=== PATIENT | male | born 1985 | race American Indian/Alaskan Native ===

== ENCOUNTER 2017-07-03 01:28 | Emergency (ER) | payer BC ==
[2017-07-03 02:22] LABS: Basophils % (Auto) 0.5 % (0.0-1.8); Hematocrit 37.9 % (35.5-45.6); Hemoglobin 12.4 gm/dl (11.8-15.2); Mean Corpuscular HGB Conc 33 % (32-34); Mean Corpuscular Hemoglobin 26 pg (28-32); Mean Corpuscular Volume 80 fl (84-94); Platelet Count 279 K/mm3 (140-440); Red Blood Count 4.76 M/mm3 (3.65-5.03); Red Cell Distribution Width 14.1 % (13.2-15.2); White Blood Count 7.7 K/mm3 (4.5-11.0)
[2017-07-03 02:24] LABS: Anion Gap 17 mmol/L; BUN/Creatinine Ratio 11.11; Blood Urea Nitrogen 10 mg/dL (9-20); Calcium 8.9 mg/dL (8.4-10.2); Carbon Dioxide 24 mmol/L (22-30); Chloride 101.3 mmol/L (98-107); Glucose 99 mg/dL (75-100); Potassium 3.7 mmol/L (3.6-5.0); Sodium 139 mmol/L (137-145)
[2017-07-03] MEDS ORDERED: BABY ASPIRIN PO ONE (07:52)
--- NOTE | 2017-07-03 07:54 | Emergency Department Report ---
ED Chest Pain HPI - General Chief Complaint: Chest Pain Stated Complaint: CHEST PAIN Time Seen by Provider: 07/03/17 07:39 Source: patient Mode of arrival: Ambulatory Limitations: No Limitations - History of Present Illness Initial Comments: This is a 32-year-old -[place] male presents to the emergency department with a 2 to three-day history of right-sided chest pain. He has some occasional and/or intermittent shortness of breath but his chest pain worsens with respirations. He denies any fever, nausea, vomiting, back pain or diaphoresis. He did not take anything for symptoms prior to presentation. He is an occasional tobacco smoker but denies any illicit drug use. No recent travel or sick contacts at home. He does not have a primary care physician. He has a past mental history of asthma. Severity scale (0 -10): 5 - Related Data Home Medications Medication Instructions Recorded Confirmed Last Taken No Known Home Medications [No 07/03/17 07/03/17 Unknown Reported Home Medications] Allergies Allergy/AdvReac Type Severity Reaction Status Date / Time pork derived (porcine) AdvReac Diarrhea Verified 07/03/17 01:49 shellfish derived AdvReac Diarrhea Verified 07/03/17 01:49 Heart Score - HEART Score History: Slightly suspicious EKG: Normal Age: < 45 Risk factors: 1-2 risk factors Troponin: < normal limit HEART Score: 1 - Critical Actions Critical Actions: 0-3 pts:0.9-1.7%risk of adverse cardiac event.Candidate for discharge ED Review of Systems ROS: Stated complaint: CHEST PAIN Other details as noted in HPI Comment: All other systems reviewed and negative Constitutional: denies: chills, fever Eyes: denies: eye pain, eye discharge, vision change ENT: denies: ear pain, throat pain Respiratory: shortness of breath. denies: cough, wheezing Cardiovascular: chest pain. denies: palpitations Gastrointestinal: denies: abdominal pain, nausea, diarrhea Genitourinary: denies: urgency, dysuria Musculoskeletal: denies: back pain, joint swelling, arthralgia Skin: denies: rash, lesions Neurological: denies: headache, weakness, paresthesias ED Past Medical Hx - Past Medical History Previous Medical History?: Yes Hx Asthma: Yes - Surgical History Past Surgical History?: Yes Additional Surgical History: hydrocele - Social History Smoking Status: Current Some Day Smoker Substance Use Type: None - Medications Home Medications: Home Medications Medication Instructions Recorded Confirmed Last Taken Type No Known Home Medications [No 07/03/17 07/03/17 Unknown History Reported Home Medications] ED Physical Exam - General Limitations: No Limitations - Other Other exam information: GENERAL: The patient is well-developed well-nourished. HENT: Normocephalic. Atraumatic. Patient has moist mucous membranes. EYES: Extraocular motions are intact. Pupils equal reactive to light bilaterally. NECK: Supple. Trachea is midline. CHEST/LUNGS: Clear to auscultation. There is no respiratory distress noted. HEART/CARDIOVASCULAR: Regular. There is no tachycardia. There is no gallop rub or murmur. ABDOMEN: Abdomen is soft, nontender. Patient has normal bowel sounds. There is no abdominal distention. SKIN: Skin is warm and dry. NEURO: The patient is awake, alert, and oriented. The patient is cooperative. The patient has no focal neurologic deficits. The patient has normal speech. MUSCULOSKELETAL: There is no tenderness or deformity. There is no limitation range of motion. There is no evidence of acute injury. ED Course Vital Signs 07/03/17 07/03/17 07/03/17 01:44 06:50 07:49 Temperature 98.6 F 98.1 F 98.1 F Pulse Rate 74 66 89 Respiratory 18 18 21 Rate Blood Pressure 131/79 128/75 Blood Pressure 136/75 [Left] O2 Sat by Pulse 100 100 100 Oximetry 07/03/17 07/03/17 07:50 09:13 Temperature Pulse Rate 78 Respiratory 21 16 Rate Blood Pressure Blood Pressure 135/72 [Left] O2 Sat by Pulse 100 100 Oximetry ARON score - Aron Score Age > 65: (0) No Aspirin use within the Past 7 Days: (0) No 3 or more CAD Risk Factors: (0) No 2 or more Angina events in past 24 hrs: (0) No Known CAD with more than 50% Stenosis: (0) No Elevated Cardiac Markers: (0) No ST Deviation Greater than 0.5mm: (0) No ARON Score: 0 ED Medical Decision Making - Lab Data Result diagrams: 07/03/17 01:53 07/03/17 01:53 - EKG Data -: EKG Interpreted by Wy EKG shows normal: sinus rhythm, axis, intervals, QRS complexes, ST-T waves Rate: normal - EKG Data When compared to previous EKG there are: previous EKG unavailable Interpretation: normal EKG - Radiology Data Radiology results: image reviewed interpreted by me: Chest x-ray does not show any acute process. There are no pleural effusions, obvious pneumonia and there is no pneumothorax. - Medical Decision Making 32-year-old male presents with a few days of right-sided chest pain. EKG is normal without ST elevation AL, ischemia or dysrhythmia. Chest x-ray does not show any acute process. Labs are unremarkable including negative troponins 3 and a negative d-dimer. Patient is low and the heart score criteria and has a ARON score of 0. He appears safe for discharge home at this time. He was given referrals for primary care and cardiology. He will return to the ER with any worsening of symptoms or any acute distress. - Differential Diagnosis costochondritis, GERD, AL, PE, pneumonia Critical Care Time: No Critical care attestation.: If time is entered above; I have spent that time in minutes in the direct care of this critically ill patient, excluding procedure time. ED Disposition Clinical Impression: Right-sided chest pain Disposition: DC-01 TO HOME OR SELFCARE Is pt being admited?: No Condition: Stable Instructions: Chest Pain (ED) Additional Instructions: Please follow up with a primary care physician in the next few days. I have also given you a referral for a local field support representative, Dr. Kimbrough, in case she would like to follow up regarding your right-sided chest pain. Return to the emergency Department with any worsening of your symptoms or any acute distress. Referrals: PRIMARY MD VERONICA [Primary Care Provider] - 3-5 Days ISABELLA KIMBROUGH MD [Staff Physician] - 3-5 Days LUIZ HUI JR, MD [Staff Physician] - 3-5 Days [facility] [Outside] - 3-5 Days Forms: Work/School Release Form(ED) Time of Disposition: 09:06
[2017-07-03 09:14] VITALS: BP 135/72
--- NOTE | 2017-07-03 14:55 | XRay Report ---
FINAL REPORT PROCEDURE: XR CHEST ROUTINE 2V TECHNIQUE: Two views of the chest are obtained HISTORY: CP COMPARISON: No prior studies are available for comparison. FINDINGS: The heart is normal in size. There is no focal infiltrate, pneumothorax or pleural effusion. There is cortical irregularity suggested of the anterior aspect of the left 1st rib. This is probably a vascular channel but correlation with point tenderness is recommended as nondisplaced fracture is not excluded. IMPRESSION: Irregularity of the left 1st rib could possibly be a nondisplaced fracture but is probably a vascular channel. Correlation with point tenderness is recommended.
== END 2017-07-03 09:16 | disposition home or self-care (01) ==
LOC: ED 01:28
DX: R07.9 Chest pain, unspecified (principal); J45.909 Unspecified asthma, uncomplicated; F17.200 Nicotine dependence, unspecified, uncomplicated
CPT/HCPCS: 36415; 71020; 80048; 84484; 85025; 85379; 93005; 93010